=== PATIENT | female | born 1940 | race Caucasian/White ===

== ENCOUNTER 2022-08-30 16:30 | Inpatient (IN) | payer OTHER ==
[~2022-08-30] VITALS: Ht 144.8 cm; Wt 54.0 kg
[2022-08-30 16:37] VITALS: BP_SYST 124; PULSE 69; RESP 18; TEMP 98; O2SAT 98
[2022-08-30 17:12] LABS: BASOPHILS % (AUTO) 0.1 % (0.0-2.0); HEMATOCRIT 29.8 % (36-48); HEMOGLOBIN 9.5 g/dL (12.0-16.0); LYMPHOCYTES # (AUTO) 0.6 K/uL (1.0-5.5); LYMPHOCYTES % (AUTO) 4.2 % (20.5-51.5); MEAN CORPUSCULAR HEMOGLOBIN 28 pg (27-31); MEAN CORPUSCULAR HGB CONC 32 % (32-36); MEAN CORPUSCULAR VOLUME 88 fL (79.0-98.0); MONOCYTES # (AUTO) 0.3 K/uL (0.0-1.0); NEUTROPHILS # (AUTO) 14.4 K/uL (1.8-7.7); NEUTROPHILS % (AUTO) 93.7 % (40.0-70.0); PLATELET COUNT (AUTO) 384 K/uL (130-430); RED BLOOD CELL COUNT(AUTO) 3.41 MIL/uL (4.2-6.2); RED CELL DISTRIBUTION WIDTH 16.2 % (9.0-15.0); WHITE BLOOD COUNT (AUTO) 15.4 K/uL (4.8-10.8)
[2022-08-30 17:17] LABS: ACETONE, SERUM NEGATIVE (NEGATIVE)
[2022-08-30 17:19] LABS: ANION GAP 12 (5-15); CALCIUM 8.4 mg/dL (8.4-11.0); CARBON DIOXIDE 23 mmol/L (23-29); CHLORIDE 99 mmol/L (98-107); CREATININE 2.29 mg/dL (0.55-1.30); GLUCOSE 307 mg/dL (74-106); POTASSIUM 3.7 mmol/L (3.5-5.1); SODIUM SERUM 134 mmol/L (136-145); UREA NITROGEN, BLOOD 52 mg/dL (8-21)
[2022-08-30 17:39] LABS: ALANINE AMINOTRANSFERASE 177 U/L (12-78); ALBUMIN 2.9 g/dL (3.4-4.8); ASPARTATE AMINOTRANSFERASE 64 U/L (10-37); TOTAL BILIRUBIN 0.3 mg/dL (0.0-1.0); TOTAL PROTEIN, SERUM 6.7 g/dL (6.4-8.3)
[2022-08-30] MEDS ORDERED: ASPIRIN 81 MG TAB.CHEW PO ONE (18:15)
[2022-08-30] MEDS ORDERED: LOSA-415 PO (19:27)
[2022-08-30] MEDS ORDERED: TOPXL100 PO (19:27)
[2022-08-30] MEDS ORDERED: HYDR12.55 PO (19:27)
[2022-08-30] MEDS ORDERED: VITA1CAP PO (19:27)
[2022-08-30] MEDS ORDERED: CHOL100038 PO (19:27)
[2022-08-30] MEDS ORDERED: ROSU40TA PO (19:27)
[2022-08-30] MEDS ORDERED: GABA-529 PO (19:27)
[2022-08-30] MEDS ORDERED: HYDR-4039 PO (19:27)
[2022-08-30] MEDS ORDERED: ASA81 PO (19:27)
[2022-08-30] MEDS ORDERED: NOR10 PO (19:27)
[2022-08-30] MEDS ORDERED: LEVO88TA2 PO (19:27)
[2022-08-30] MEDS ORDERED: CLOP75TA32 PO (19:27)
[2022-08-30] MEDS ORDERED: METF-379 PO (19:27)
[2022-08-30] MEDS ORDERED: CEPH250C PO (19:27)
[2022-08-31 13:03] VITALS: BP_SYST 141; PULSE 59; RESP 18; TEMP 96.9
[2022-08-31 13:21] VITALS: O2SAT 97
[2022-08-31] MEDS ORDERED: CLOPIDOGREL BISULFATE 75 MG TABLET PO ONE (13:45)
[2022-08-31] MEDS ORDERED: METOPROLOL SUCCINATE 50 MG TAB.SR.24H (TOPROL XL) PO ONE (13:45)
[2022-08-31] MEDS ORDERED: ASPIRIN 81 MG TAB.CHEW PO ONE (13:45)
[2022-08-31] MEDS ORDERED: amLODIPine BESYLATE 10 MG TABLET PO ONE (13:45)
[2022-08-31] MEDS ORDERED: ATORVASTATIN 20 MG TABLET PO ONE (14:00)
[2022-08-31] MEDS ORDERED: ROSUVASTATIN CALCIUM 5 MG/TAB (CRESTOR) PO SCH (15:00)
[2022-08-31 16:00] VITALS: BP_SYST 146; PULSE 53; RESP 18; TEMP 97.4; O2SAT 97
[2022-08-31] MEDS: hydrALAZINE HCL 25 MG TABLET PO SCH ×2 (16:07→21:20)
[2022-08-31 19:35] VITALS: O2SAT 96
[2022-08-31 20:05] VITALS: BP_SYST 121; PULSE 61; RESP 18; TEMP 97.5; O2SAT 96
[2022-09-01] VITALS (7 sets, daily range): BP systolic 131–139; PULSE 59–71; RESP 16–18; TEMP 96.5–97.8; O2SAT 96–98
[2022-09-01] MEDS: hydrALAZINE HCL 25 MG TABLET PO SCH ×3 (06:44→21:19)
[2022-09-01 07:05] LABS: BILIRUBIN,URINE NEGATIVE (NEGATIVE); BLOOD, URINE NEGATIVE (NEGATIVE); CLARITY/URINE CLEAR (CLEAR); COLOR,URINE YELLOW (YELLOW); GLUCOSE,URINE TRACE (NEGATIVE); KETONES,URINE NEGATIVE (NEGATIVE); LEUKOCYTE ESTERASE ,URINE TRACE (NEGATIVE); NITRITE, URINE NEGATIVE (NEGATIVE); PH,URINE 6.5 (5.0-8.0); PROTEIN URINE NEGATIVE (NEGATIVE); UROBILINOGEN,URINE 0.2 (0.2-1.0)
[2022-09-01 07:16] LABS: BACTERIA,URINE RARE /HPF (None Seen); RBC,URINE 0-3 /HPF (0-3)
[2022-09-01] MEDS ORDERED: HYDROcodone/ACETAMIN 5-325 MG TAB (NORCO/ VICODIN) PO PRN (09:00)
[2022-09-01] MEDS: METOPROLOL SUCCINATE 50 MG TAB.SR.24H (TOPROL XL) PO SCH (09:00)
[2022-09-01] MEDS ORDERED: ACETAMINOPHEN 500 MG TABLET PO PRN (09:00)
[2022-09-01] MEDS: ASPIRIN 81 MG TAB.CHEW PO SCH (09:53)
[2022-09-01] MEDS: HYDROCHLOROTHIAZIDE 12.5 MG CAPSULE (HCTZ) PO SCH (09:54)
[2022-09-01] MEDS ORDERED: ACETAMINOPHEN 500 MG TABLET ONE (09:54)
[2022-09-01] MEDS: amLODIPine BESYLATE 10 MG TABLET PO SCH (09:55)
[2022-09-01] MEDS: ATORVASTATIN 20 MG TABLET PO SCH (09:55)
[2022-09-01] MEDS: CLOPIDOGREL BISULFATE 75 MG TABLET PO SCH (09:59)
[2022-09-01 11:21] LABS: BASOPHILS % (AUTO) 0.1 % (0.0-2.0); EOSINOPHILS # (AUTO) 0.1 K/uL (0.0-0.4); EOSINOPHILS % (AUTO) 0.6 % (0.0-4.0); HEMOGLOBIN 10.9 g/dL (12.0-16.0); LYMPHOCYTES # (AUTO) 2.1 K/uL (1.0-5.5); LYMPHOCYTES % (AUTO) 20.7 % (20.5-51.5); MEAN CORPUSCULAR HEMOGLOBIN 28 pg (27-31); MEAN CORPUSCULAR HGB CONC 32 % (32-36); MEAN CORPUSCULAR VOLUME 87 fL (79.0-98.0); MONOCYTES # (AUTO) 0.7 K/uL (0.0-1.0); MONOCYTES % (AUTO) 6.6 % (1.7-9.3); NEUTROPHILS # (AUTO) 7.4 K/uL (1.8-7.7); PLATELET COUNT (AUTO) 368 K/uL (130-430); RED BLOOD CELL COUNT(AUTO) 3.89 MIL/uL (4.2-6.2); RED CELL DISTRIBUTION WIDTH 16.9 % (9.0-15.0); WHITE BLOOD COUNT (AUTO) 10.2 K/uL (4.8-10.8)
[2022-09-01 11:29] LABS: ANION GAP 11 (5-15); CALCIUM 8.8 mg/dL (8.4-11.0); CARBON DIOXIDE 27 mmol/L (23-29); CHLORIDE 105 mmol/L (98-107); CREATININE 1.21 mg/dL (0.55-1.30); GLUCOSE 116 mg/dL (74-106); SODIUM SERUM 143 mmol/L (136-145); UREA NITROGEN, BLOOD 32 mg/dL (8-21)
[2022-09-01 11:32] LABS: POTASSIUM 2.9 mmol/L (3.5-5.1)
[2022-09-01] MEDS ORDERED: POTASSIUM CHLORIDE 40 MEQ, LIDOCAINE JECT 2% PF 100 MG 50 MG in NS 250 ML IV ONE (12:45)
[2022-09-01] MEDS ORDERED: SILDENAFIL CITRATE 20 MG TABLET PO ONE (16:00)
[2022-09-01] MEDS: SILDENAFIL CITRATE 20 MG TABLET PO SCH (21:00)
[2022-09-02] MEDS: hydrALAZINE HCL 25 MG TABLET PO SCH ×3 (06:18→21:25)
[2022-09-02 08:00] VITALS: O2SAT 96
[2022-09-02 08:50] VITALS: BP_SYST 119; PULSE 73; RESP 16; O2SAT 97
[2022-09-02] MEDS: amLODIPine BESYLATE 10 MG TABLET PO SCH (09:00)
[2022-09-02] MEDS: CLOPIDOGREL BISULFATE 75 MG TABLET PO SCH (09:04)
[2022-09-02] MEDS: SILDENAFIL CITRATE 20 MG TABLET PO SCH ×3 (09:04→21:00)
[2022-09-02] MEDS: ATORVASTATIN 20 MG TABLET PO SCH (09:04)
[2022-09-02] MEDS: HYDROCHLOROTHIAZIDE 12.5 MG CAPSULE (HCTZ) PO SCH (09:05)
[2022-09-02] MEDS: METOPROLOL SUCCINATE 50 MG TAB.SR.24H (TOPROL XL) PO SCH (09:06)
[2022-09-02] MEDS: ASPIRIN 81 MG TAB.CHEW PO SCH (09:06)
[2022-09-02 11:42] VITALS: BP_SYST 133; PULSE 55; RESP 18; TEMP 98.1; O2SAT 98
[2022-09-02 16:33] VITALS: BP_SYST 142; PULSE 57; RESP 18; TEMP 97.9; O2SAT 97
[2022-09-02] MEDS ORDERED: DEXTROSE 50% JECT 50 ML DISP.SYRIN IVP PRN (18:30)
[2022-09-02] MEDS ORDERED: GLUCOSE (DEXTROSE) ORAL GEL -Adults PO PRN (18:30)
[2022-09-02] MEDS ORDERED: D5W 1,000 ML IV PRN (18:30)
[2022-09-02 20:00] VITALS: BP_SYST 139; PULSE 60; RESP 18; TEMP 97.9; O2SAT 98
[2022-09-02 22:00] VITALS: O2SAT 98
[2022-09-03 00:25] VITALS: BP_SYST 139; PULSE 70; RESP 16; TEMP 97.7; O2SAT 97
[2022-09-03] MEDS: hydrALAZINE HCL 25 MG TABLET PO SCH (06:32)
[2022-09-03 08:00] VITALS: O2SAT 99
[2022-09-03] MEDS: CLOPIDOGREL BISULFATE 75 MG TABLET PO SCH (09:26)
[2022-09-03] MEDS: SILDENAFIL CITRATE 20 MG TABLET PO SCH (09:26)
[2022-09-03] MEDS: ASPIRIN 81 MG TAB.CHEW PO SCH (09:26)
[2022-09-03] MEDS: ATORVASTATIN 20 MG TABLET PO SCH (09:26)
[2022-09-03] MEDS: METOPROLOL SUCCINATE 50 MG TAB.SR.24H (TOPROL XL) PO SCH (09:27)
[2022-09-03] MEDS: amLODIPine BESYLATE 10 MG TABLET PO SCH (09:28)
[2022-09-03] MEDS: HYDROCHLOROTHIAZIDE 12.5 MG CAPSULE (HCTZ) PO SCH (09:28)
[2022-09-03 11:57] LABS: ANION GAP 7 (5-15); CALCIUM 8.4 mg/dL (8.4-11.0); CARBON DIOXIDE 28 mmol/L (23-29); CHLORIDE 102 mmol/L (98-107); CREATININE 1.37 mg/dL (0.55-1.30); GLUCOSE 297 mg/dL (74-106); POTASSIUM 3.7 mmol/L (3.5-5.1); SODIUM SERUM 137 mmol/L (136-145); UREA NITROGEN, BLOOD 27 mg/dL (8-21)
[2022-09-03 11:58] VITALS: BP_SYST 139; PULSE 57; RESP 17; TEMP 98.4; O2SAT 97
[2022-09-03 12:53] VITALS: BP_SYST 132; PULSE 68; RESP 16; TEMP 98.3; O2SAT 99
== END 2022-09-03 13:51 | disposition home or self-care (01) | DRG 637 ==
LOC: SED 16:30 → STU 18:51
PROVIDERS: ADMIT Internal Medicine; ATTEND Internal Medicine
DX: E11.00 Type 2 diabetes mellitus with hyperosmolarity without nonketotic hyperglycemic-hyperosmolar coma (NKHHC) (principal); N17.0 Acute kidney failure with tubular necrosis; G51.0 Bell's palsy; I27.21 Secondary pulmonary arterial hypertension; E11.9 Type 2 diabetes mellitus without complications; E87.6 Hypokalemia; E78.5 Hyperlipidemia, unspecified; I11.9 Hypertensive heart disease without heart failure; Z88.2 Allergy status to sulfonamides; Z79.82 Long term (current) use of aspirin; I36.1 Nonrheumatic tricuspid (valve) insufficiency
CPT/HCPCS: 36415; 70450-TC; 71045; 76376; 80048; 80053; 81000; 82009; 82962; 83605; 83735; 83880; 84302; 84484; 85025; 92610-GN; 93005; 93306; 93880; 99285; G0378; J3480; J7050

== ENCOUNTER 2022-12-10 20:22 | Emergency (ER) | payer OTHER ==
[~2022-12-10] VITALS: Ht 157.5 cm; Wt 50.8 kg
[~2022-12-10 20:22] MED LIST: ASA81 PO; CEPH250C PO; CHOL100038 PO; CLOP75TA32 PO; GABA-529 PO; HYDR-4039 PO; HYDR12.55 PO; LEVO88TA2 PO; LOSA-415 PO; METF-379 PO; NOR10 PO; ROSU40TA PO; TOPXL100 PO; VITA1CAP PO
[2022-12-10 20:29] VITALS: BP_SYST 110; PULSE 80; RESP 20; TEMP 97.1; O2SAT 98
[2022-12-10] MEDS ORDERED: DEXTROSE 50% JECT 50 ML DISP.SYRIN ONE (20:29)
[2022-12-10] MEDS ORDERED: DEXTROSE 50% JECT 50 ML DISP.SYRIN IVP ONE (20:45)
[2022-12-10 21:11] LABS: BASOPHILS % (AUTO) 0.3 % (0.0-2.0); EOSINOPHILS # (AUTO) 0.1 K/uL (0.0-0.4); EOSINOPHILS % (AUTO) 0.6 % (0.0-4.0); HEMATOCRIT 31.2 % (36-48); HEMOGLOBIN 10.1 g/dL (12.0-16.0); LYMPHOCYTES # (AUTO) 0.9 K/uL (1.0-5.5); LYMPHOCYTES % (AUTO) 7.9 % (20.5-51.5); MEAN CORPUSCULAR HEMOGLOBIN 28 pg (27-31); MEAN CORPUSCULAR HGB CONC 32 % (32-36); MEAN CORPUSCULAR VOLUME 87 fL (79.0-98.0); MONOCYTES # (AUTO) 0.6 K/uL (0.0-1.0); MONOCYTES % (AUTO) 5.7 % (1.7-9.3); NEUTROPHILS # (AUTO) 9.3 K/uL (1.8-7.7); NEUTROPHILS % (AUTO) 85.5 % (40.0-70.0); PLATELET COUNT (AUTO) 261 K/uL (130-430); RED BLOOD CELL COUNT(AUTO) 3.59 MIL/uL (4.2-6.2); RED CELL DISTRIBUTION WIDTH 15.4 % (9.0-15.0); WHITE BLOOD COUNT (AUTO) 10.9 K/uL (4.8-10.8)
[2022-12-10 21:58] LABS: ANION GAP 16 (5-15); CALCIUM 8.7 mg/dL (8.4-11.0); CARBON DIOXIDE 18 mmol/L (23-29); CHLORIDE 100 mmol/L (98-107); CREATININE 4.83 mg/dL (0.55-1.30); GLUCOSE 211 mg/dL (74-106); POTASSIUM 3.9 mmol/L (3.5-5.1); SODIUM SERUM 134 mmol/L (136-145); UREA NITROGEN, BLOOD 74 mg/dL (8-21)
[2022-12-10 22:03] LABS: ALANINE AMINOTRANSFERASE 437 U/L (12-78); ALBUMIN 2.4 g/dL (3.4-4.8); ASPARTATE AMINOTRANSFERASE 700 U/L (10-37); TOTAL BILIRUBIN 0.2 mg/dL (0.0-1.0); TOTAL PROTEIN, SERUM 6.5 g/dL (6.4-8.3)
[2022-12-10 22:27] VITALS: BP_SYST 122; PULSE 68; RESP 18; TEMP 97.1; O2SAT 98
== END 2022-12-10 22:27 | disposition home or self-care (01) ==
LOC: SED 20:22
DX: E11.649 Type 2 diabetes mellitus with hypoglycemia without coma (principal); I10 Essential (primary) hypertension; Z88.2 Allergy status to sulfonamides; Z79.899 Other long term (current) drug therapy
CPT/HCPCS: 36415; 80053; 82962; 85025; 96374; 99283

== ENCOUNTER 2022-12-16 12:06 | Inpatient (IN) | payer OTHER ==
[~2022-12-16] VITALS: Ht 149.9 cm; Wt 53.1 kg
[2022-12-16 12:41] VITALS: BP_SYST 131; PULSE 52; RESP 16; TEMP 97.6; O2SAT 100
[2022-12-16] MEDS ORDERED: NACL 0.9% 1,000 ML IV ONE ×2 (13:00→14:30)
[2022-12-16 13:38] LABS: BASOPHILS % (AUTO) 0.4 % (0.0-2.0); EOSINOPHILS # (AUTO) 0.1 K/uL (0.0-0.4); EOSINOPHILS % (AUTO) 1.5 % (0.0-4.0); HEMATOCRIT 32.3 % (36-48); HEMOGLOBIN 10.3 g/dL (12.0-16.0); LYMPHOCYTES # (AUTO) 0.9 K/uL (1.0-5.5); MEAN CORPUSCULAR HEMOGLOBIN 28 pg (27-31); MEAN CORPUSCULAR HGB CONC 32 % (32-36); MEAN CORPUSCULAR VOLUME 87 fL (79.0-98.0); MONOCYTES # (AUTO) 0.4 K/uL (0.0-1.0); MONOCYTES % (AUTO) 4.8 % (1.7-9.3); NEUTROPHILS # (AUTO) 7.7 K/uL (1.8-7.7); NEUTROPHILS % (AUTO) 83.3 % (40.0-70.0); PLATELET COUNT (AUTO) 330 K/uL (130-430); RED BLOOD CELL COUNT(AUTO) 3.72 MIL/uL (4.2-6.2); RED CELL DISTRIBUTION WIDTH 15.5 % (9.0-15.0); WHITE BLOOD COUNT (AUTO) 9.3 K/uL (4.8-10.8)
[2022-12-16 13:54] LABS: ALANINE AMINOTRANSFERASE 387 U/L (12-78); ALBUMIN 2.6 g/dL (3.4-4.8); ANION GAP 19 (5-15); ASPARTATE AMINOTRANSFERASE 221 U/L (10-37); CALCIUM 9.3 mg/dL (8.4-11.0); CARBON DIOXIDE 19 mmol/L (23-29); CHLORIDE 101 mmol/L (98-107); GLUCOSE 225 mg/dL (74-106); SODIUM SERUM 139 mmol/L (136-145); TOTAL BILIRUBIN 0.3 mg/dL (0.0-1.0); TOTAL PROTEIN, SERUM 7.2 g/dL (6.4-8.3)
[2022-12-16 14:06] LABS: POTASSIUM 6.4 mmol/L (3.5-5.1)
[2022-12-16 14:07] LABS: UREA NITROGEN, BLOOD 154 mg/dL (8-21)
[2022-12-16] MEDS ORDERED: SODIUM BICARBONATE 8.4% JECT 50 MEQ/50 ML SYRINGE IVP ONE (14:30)
[2022-12-16] MEDS ORDERED: INSULIN REGULAR, HUMAN 10 UNITS/0.1 ML, 3 ML VIAL IVP ONE (14:30)
[2022-12-16] MEDS ORDERED: SODIUM POLYSTYRENE SULFONATE 15 GM/60 ML UDBTL PO ONE ×2 (14:30→16:30)
[2022-12-16] MEDS ORDERED: DEXTROSE 50% JECT 50 ML DISP.SYRIN IVP ONE (14:30)
[2022-12-16] MEDS ORDERED: INSU100V (15:12)
[2022-12-16] MEDS ORDERED: ASPI-1077 PO (15:12)
[2022-12-16 16:07] LABS: INR 1.1 (0.8-1.2)
[2022-12-16] MEDS ORDERED: INSULIN Lispro 100 UNITS/ML, 3 ML VIAL (humaLOG) SQ SCH (16:15)
[2022-12-16 17:35] VITALS: BP_SYST 125; PULSE 66; RESP 18; TEMP 97
[2022-12-16 17:51] VITALS: BP_SYST 125; PULSE 66; RESP 16; TEMP 96.6; O2SAT 96
[2022-12-16] MEDS: ATORVASTATIN 20 MG TABLET PO SCH (18:00)
[2022-12-16 20:05] VITALS: BP_SYST 119; PULSE 64; RESP 18; TEMP 97.8; O2SAT 98
[2022-12-16] MEDS ORDERED: HEPARIN SODIUM, PORCINE 10,000 UNITS/ 10 ML VIAL ONE (20:55)
[2022-12-16] MEDS: hydrALAZINE HCL 25 MG TABLET PO SCH (21:00)
[2022-12-16] MEDS ORDERED: HEPARIN SODIUM,PORCINE 10,000 UNIT/ML VIAL IV ONE (21:00)
[2022-12-16] MEDS ORDERED: HEPARIN SODIUM, PORCINE 10,000 UNITS/ 10 ML VIAL IV ONE (21:15)
[2022-12-16] MEDS: INSULIN LISPRO SLIDING SCALE 100 UNITS/ML, 3 ML VIAL (humaLOG) SUBCUT PRN (21:45)
[2022-12-16] MEDS ORDERED: HEPARIN SODIUM,PORCINE 5,000 UNITS/ML VIAL ONE (22:27)
[2022-12-17 00:37] VITALS: BP_SYST 116; PULSE 71; RESP 16; TEMP 96.4; O2SAT 98
[2022-12-17 04:57] LABS: BASOPHILS % (AUTO) 0.2 % (0.0-2.0); EOSINOPHILS # (AUTO) 0.2 K/uL (0.0-0.4); EOSINOPHILS % (AUTO) 1.9 % (0.0-4.0); HEMATOCRIT 27.4 % (36-48); HEMOGLOBIN 8.9 g/dL (12.0-16.0); LYMPHOCYTES # (AUTO) 1.3 K/uL (1.0-5.5); MEAN CORPUSCULAR HEMOGLOBIN 28 pg (27-31); MEAN CORPUSCULAR HGB CONC 33 % (32-36); MEAN CORPUSCULAR VOLUME 85 fL (79.0-98.0); MONOCYTES # (AUTO) 0.5 K/uL (0.0-1.0); MONOCYTES % (AUTO) 5.2 % (1.7-9.3); NEUTROPHILS # (AUTO) 7.1 K/uL (1.8-7.7); NEUTROPHILS % (AUTO) 78.7 % (40.0-70.0); PLATELET COUNT (AUTO) 245 K/uL (130-430); RED BLOOD CELL COUNT(AUTO) 3.22 MIL/uL (4.2-6.2); RED CELL DISTRIBUTION WIDTH 15.6 % (9.0-15.0)
[2022-12-17 05:08] LABS: ANION GAP 12 (5-15); CALCIUM 8.3 mg/dL (8.4-11.0); CARBON DIOXIDE 27 mmol/L (23-29); CHLORIDE 105 mmol/L (98-107); CREATININE 5.48 mg/dL (0.55-1.30); GLUCOSE 86 mg/dL (74-106); POTASSIUM 3.2 mmol/L (3.5-5.1); SODIUM SERUM 144 mmol/L (136-145); UREA NITROGEN, BLOOD 66 mg/dL (8-21)
[2022-12-17 05:17] LABS: BILIRUBIN,URINE NEGATIVE (NEGATIVE); COLOR,URINE YELLOW (YELLOW); GLUCOSE,URINE TRACE (NEGATIVE); KETONES,URINE NEGATIVE (NEGATIVE); LEUKOCYTE ESTERASE ,URINE 2+ (NEGATIVE); NITRITE, URINE NEGATIVE (NEGATIVE); PROTEIN URINE 2+ (NEGATIVE); UROBILINOGEN,URINE 0.2 (0.2-1.0)
[2022-12-17 05:22] LABS: BLOOD, URINE 1+ (NEGATIVE); CLARITY/URINE SLIGHTLY CLOUDY (CLEAR)
[2022-12-17 05:24] LABS: BACTERIA,URINE MODERATE /HPF (None Seen); WBC,URINE 20-50 /HPF (0-3)
[2022-12-17] MEDS: LEVOTHYROXINE SODIUM 0.088 MG TABLET PO SCH (06:54)
[2022-12-17 08:05] VITALS: BP_SYST 114; PULSE 76; RESP 16; TEMP 98.1; O2SAT 97
[2022-12-17] MEDS ORDERED: ASPIRIN 81 MG TAB.CHEW PO SCH (09:00)
[2022-12-17] MEDS: METOPROLOL SUCCINATE 50 MG TAB.SR.24H (TOPROL XL) PO SCH (09:40)
[2022-12-17] MEDS: hydrALAZINE HCL 25 MG TABLET PO SCH ×3 (09:40→21:13)
[2022-12-17] MEDS: ASPIRIN 81 MG TAB.CHEW PO SCH (09:41)
[2022-12-17] MEDS: amLODIPine BESYLATE 10 MG TABLET PO SCH (09:41)
[2022-12-17] MEDS: VITAMIN B COMPLEX 1 CAP/TAB PO SCH (09:46)
[2022-12-17 11:25] VITALS: BP_SYST 118; PULSE 78; RESP 16; TEMP 98.8; O2SAT 95
[2022-12-17] MEDS: INSULIN LISPRO SLIDING SCALE 100 UNITS/ML, 3 ML VIAL (humaLOG) SUBCUT PRN ×3 (12:18→21:21)
[2022-12-17 15:22] VITALS: BP_SYST 99; PULSE 63; RESP 16; TEMP 96.7; O2SAT 97
[2022-12-17] MEDS: ATORVASTATIN 20 MG TABLET PO SCH (19:16)
[2022-12-17 20:00] VITALS: BP_SYST 110; PULSE 65; RESP 20; TEMP 98.1; O2SAT 98
[2022-12-18] VITALS (7 sets, daily range): BP systolic 93–132; PULSE 58–117; RESP 15–18; TEMP 96.7–97.9; O2SAT 95–100
[2022-12-18 05:40] LABS: BASOPHILS % (AUTO) 0.2 % (0.0-2.0); EOSINOPHILS # (AUTO) 0.2 K/uL (0.0-0.4); EOSINOPHILS % (AUTO) 2.5 % (0.0-4.0); HEMATOCRIT 27.4 % (36-48); HEMOGLOBIN 8.9 g/dL (12.0-16.0); LYMPHOCYTES # (AUTO) 1.8 K/uL (1.0-5.5); LYMPHOCYTES % (AUTO) 18.9 % (20.5-51.5); MEAN CORPUSCULAR HEMOGLOBIN 28 pg (27-31); MEAN CORPUSCULAR HGB CONC 33 % (32-36); MEAN CORPUSCULAR VOLUME 85 fL (79.0-98.0); MONOCYTES # (AUTO) 0.5 K/uL (0.0-1.0); MONOCYTES % (AUTO) 5.8 % (1.7-9.3); NEUTROPHILS # (AUTO) 6.7 K/uL (1.8-7.7); NEUTROPHILS % (AUTO) 72.6 % (40.0-70.0); PLATELET COUNT (AUTO) 233 K/uL (130-430); RED BLOOD CELL COUNT(AUTO) 3.22 MIL/uL (4.2-6.2); RED CELL DISTRIBUTION WIDTH 15.8 % (9.0-15.0); WHITE BLOOD COUNT (AUTO) 9.3 K/uL (4.8-10.8)
[2022-12-18 05:55] LABS: ANION GAP 12 (5-15); CALCIUM 8.4 mg/dL (8.4-11.0); CARBON DIOXIDE 27 mmol/L (23-29); CHLORIDE 104 mmol/L (98-107); CREATININE 6.55 mg/dL (0.55-1.30); GLUCOSE 98 mg/dL (74-106); POTASSIUM 3.1 mmol/L (3.5-5.1); SODIUM SERUM 143 mmol/L (136-145); UREA NITROGEN, BLOOD 76 mg/dL (8-21)
[2022-12-18] MEDS: LEVOTHYROXINE SODIUM 0.088 MG TABLET PO SCH (05:58)
[2022-12-18] MEDS: amLODIPine BESYLATE 10 MG TABLET PO SCH (09:43)
[2022-12-18] MEDS: ASPIRIN 81 MG TAB.CHEW PO SCH (09:43)
[2022-12-18] MEDS: VITAMIN B COMPLEX 1 CAP/TAB PO SCH (09:43)
[2022-12-18] MEDS: hydrALAZINE HCL 25 MG TABLET PO SCH ×3 (09:44→20:25)
[2022-12-18] MEDS: METOPROLOL SUCCINATE 50 MG TAB.SR.24H (TOPROL XL) PO SCH (09:44)
[2022-12-18 11:06] LABS: HEPATITIS A AB, IgM Negative (Negative); HEPATITIS B CORE AB, IgM Negative (Negative); HEPATITIS B SURFACE AG Negative (Negative); HEPATITIS C VIRUS AB Non Reactive (Non Reactive)
[2022-12-18] MEDS: INSULIN LISPRO SLIDING SCALE 100 UNITS/ML, 3 ML VIAL (humaLOG) SUBCUT PRN ×2 (11:25→20:34)
[2022-12-18] MEDS ORDERED: HEPARIN SODIUM,PORCINE 5,000 UNITS/ML VIAL MC ONE (15:15)
[2022-12-18] MEDS: ATORVASTATIN 20 MG TABLET PO SCH (20:32)
[2022-12-19 00:33] VITALS: BP_SYST 113; PULSE 64; RESP 16; TEMP 97.3; O2SAT 97
[2022-12-19 05:18] LABS: BASOPHILS % (AUTO) 0.3 % (0.0-2.0); EOSINOPHILS # (AUTO) 0.2 K/uL (0.0-0.4); EOSINOPHILS % (AUTO) 2.9 % (0.0-4.0); HEMATOCRIT 27.5 % (36-48); HEMOGLOBIN 8.8 g/dL (12.0-16.0); LYMPHOCYTES # (AUTO) 1.4 K/uL (1.0-5.5); LYMPHOCYTES % (AUTO) 18.4 % (20.5-51.5); MEAN CORPUSCULAR HEMOGLOBIN 28 pg (27-31); MEAN CORPUSCULAR HGB CONC 32 % (32-36); MEAN CORPUSCULAR VOLUME 87 fL (79.0-98.0); MONOCYTES # (AUTO) 0.5 K/uL (0.0-1.0); MONOCYTES % (AUTO) 6.9 % (1.7-9.3); NEUTROPHILS # (AUTO) 5.3 K/uL (1.8-7.7); NEUTROPHILS % (AUTO) 71.5 % (40.0-70.0); PLATELET COUNT (AUTO) 185 K/uL (130-430); RED BLOOD CELL COUNT(AUTO) 3.17 MIL/uL (4.2-6.2); RED CELL DISTRIBUTION WIDTH 15.9 % (9.0-15.0); WHITE BLOOD COUNT (AUTO) 7.4 K/uL (4.8-10.8)
[2022-12-19 05:26] LABS: ANION GAP 7 (5-15); CALCIUM 8.4 mg/dL (8.4-11.0); CARBON DIOXIDE 28 mmol/L (23-29); CHLORIDE 104 mmol/L (98-107); GLUCOSE 138 mg/dL (74-106); SODIUM SERUM 139 mmol/L (136-145); UREA NITROGEN, BLOOD 34 mg/dL (8-21)
[2022-12-19] MEDS: LEVOTHYROXINE SODIUM 0.088 MG TABLET PO SCH (06:56)
[2022-12-19 07:00] VITALS: BP_SYST 121; PULSE 62; RESP 16; TEMP 98.4; O2SAT 95; O2SAT 98
[2022-12-19 09:00] VITALS: BP_SYST 121; PULSE 62; RESP 16; TEMP 98.4; O2SAT 95
[2022-12-19] MEDS ORDERED: GABAPENTIN 100 MG CAPSULE PO ONE (09:45)
[2022-12-19] MEDS: ASPIRIN 81 MG TAB.CHEW PO SCH (10:58)
[2022-12-19] MEDS: hydrALAZINE HCL 25 MG TABLET PO SCH ×3 (10:58→22:22)
[2022-12-19] MEDS: METOPROLOL SUCCINATE 50 MG TAB.SR.24H (TOPROL XL) PO SCH (10:59)
[2022-12-19] MEDS: amLODIPine BESYLATE 10 MG TABLET PO SCH (10:59)
[2022-12-19] MEDS: VITAMIN B COMPLEX 1 CAP/TAB PO SCH (11:00)
[2022-12-19 11:49] VITALS: BP_SYST 115; PULSE 61; RESP 18; TEMP 98.6; O2SAT 97
[2022-12-19] MEDS: INSULIN LISPRO SLIDING SCALE 100 UNITS/ML, 3 ML VIAL (humaLOG) SUBCUT PRN ×3 (12:03→22:19)
[2022-12-19 16:00] VITALS: BP_SYST 113; PULSE 66; RESP 18; TEMP 98; O2SAT 99
[2022-12-19] MEDS: ATORVASTATIN 20 MG TABLET PO SCH (18:16)
[2022-12-19] MEDS ORDERED: CEPH250C PO ×2 (18:27)
[2022-12-19] MEDS ORDERED: LEVO250T73 PO (18:35)
[2022-12-20 01:05] VITALS: BP_SYST 110; PULSE 62; RESP 16; TEMP 97.3; O2SAT 95
[2022-12-20] MEDS: LEVOTHYROXINE SODIUM 0.088 MG TABLET PO SCH (06:10)
[2022-12-20] MEDS: INSULIN LISPRO SLIDING SCALE 100 UNITS/ML, 3 ML VIAL (humaLOG) SUBCUT PRN (06:11)
[2022-12-20] MEDS: METOPROLOL SUCCINATE 50 MG TAB.SR.24H (TOPROL XL) PO SCH (09:00)
[2022-12-20] MEDS ORDERED: GABAPENTIN 100 MG CAPSULE PO SCH (09:00)
[2022-12-20] MEDS: ASPIRIN 81 MG TAB.CHEW PO SCH (09:02)
[2022-12-20] MEDS: hydrALAZINE HCL 25 MG TABLET PO SCH (09:03)
[2022-12-20] MEDS: amLODIPine BESYLATE 10 MG TABLET PO SCH (09:03)
[2022-12-20] MEDS: VITAMIN B COMPLEX 1 CAP/TAB PO SCH (09:03)
[2022-12-20] MEDS ORDERED: HEPARIN SODIUM,PORCINE 5,000 UNITS/ML VIAL IV ONE (11:00)
[2022-12-20] MEDS ORDERED: HEPARIN SODIUM,PORCINE 5,000 UNITS/ML VIAL MC ONE (11:30)
[2022-12-20 12:54] VITALS: BP_SYST 99; PULSE 56; RESP 17; TEMP 97.1; O2SAT 99
[2022-12-25 14:06] LABS: ATYPICAL pANCA <1:20 titer (Neg:<1:20); CYTOPLASMIC (C-ANCA) <1:20 titer (Neg:<1:20); CYTOPLASMIC (P-ANCA) <1:20 titer (Neg:<1:20)
== END 2022-12-20 14:25 | disposition home health service (06) | DRG 682 ==
LOC: SED 12:06 → STU 15:14 → SMU 12-17 16:52
PROVIDERS: ADMIT Specialist; ATTEND Specialist
PROC: 02HV33Z Insertion of Infusion Device into Superior Vena Cava, Percutaneous Approach (ICD-10-PCS; principal; 2022-12-16)
PROC: B548ZZA Ultrasonography of Superior Vena Cava, Guidance (ICD-10-PCS; 2022-12-16)
PROC: 5A1D70Z Performance of Urinary Filtration, Intermittent, Less than 6 Hours Per Day (ICD-10-PCS; 2022-12-16)
PROC: 5A1D70Z Performance of Urinary Filtration, Intermittent, Less than 6 Hours Per Day (ICD-10-PCS; 2022-12-18)
PROC: 5A1D70Z Performance of Urinary Filtration, Intermittent, Less than 6 Hours Per Day (ICD-10-PCS; 2022-12-20)
DX: I12.0 Hypertensive chronic kidney disease with stage 5 chronic kidney disease or end stage renal disease (principal); N18.6 End stage renal disease; N17.9 Acute kidney failure, unspecified; M31.9 Necrotizing vasculopathy, unspecified; E87.5 Hyperkalemia; E11.22 Type 2 diabetes mellitus with diabetic chronic kidney disease; Z20.822 Contact with and (suspected) exposure to COVID-19; E03.9 Hypothyroidism, unspecified; E78.00 Pure hypercholesterolemia, unspecified; Z88.2 Allergy status to sulfonamides; Z79.899 Other long term (current) drug therapy; Z79.82 Long term (current) use of aspirin; Z79.4 Long term (current) use of insulin
CPT/HCPCS: 36415; 71045; 71250-TC; 76376; 76770; 80048; 80053; 80074; 81000; 81001; 81015; 82570; 82962; 83735; 83970; 84302; 84484; 85025; 85610-TC; 86256; 86480; 87081; 87086; 90935; 90937; 93005; 96361; 96374; 96375; 97110-GP; 97116-GP; 97530-GP; 99285; G0378; J1644; J1815

== ENCOUNTER 2023-01-05 03:51 | Inpatient (IN) | payer OTHER ==
[~2023-01-05] VITALS: Ht 149.9 cm; Wt 49.4 kg
[~2023-01-05 03:51] MED LIST changes: -ASA81 PO; +ASPI-1077 PO; -CEPH250C PO; -CLOP75TA32 PO; -HYDR-4039 PO; +INSU100V; +LEVO250T73 PO; -METF-379 PO; -NOR10 PO
[2023-01-05 04:00] VITALS: BP_SYST 184; PULSE 75; RESP 20; TEMP 97.7; O2SAT 99
[2023-01-05 04:31] LABS: BASOPHILS % (AUTO) 0.3 % (0.0-2.0); EOSINOPHILS % (AUTO) 0.3 % (0.0-4.0); HEMATOCRIT 32.9 % (36-48); HEMOGLOBIN 10.3 g/dL (12.0-16.0); LYMPHOCYTES # (AUTO) 0.9 K/uL (1.0-5.5); LYMPHOCYTES % (AUTO) 15.8 % (20.5-51.5); MEAN CORPUSCULAR HEMOGLOBIN 28 pg (27-31); MEAN CORPUSCULAR HGB CONC 31 % (32-36); MEAN CORPUSCULAR VOLUME 90 fL (79.0-98.0); MONOCYTES # (AUTO) 0.6 K/uL (0.0-1.0); MONOCYTES % (AUTO) 9.7 % (1.7-9.3); NEUTROPHILS # (AUTO) 4.4 K/uL (1.8-7.7); NEUTROPHILS % (AUTO) 73.9 % (40.0-70.0); PLATELET COUNT (AUTO) 199 K/uL (130-430); RED BLOOD CELL COUNT(AUTO) 3.65 MIL/uL (4.2-6.2); RED CELL DISTRIBUTION WIDTH 18.7 % (9.0-15.0)
[2023-01-05 04:34] LABS: BILIRUBIN,URINE NEGATIVE (NEGATIVE); BLOOD, URINE 2+ (NEGATIVE); CLARITY/URINE CLEAR (CLEAR); COLOR,URINE YELLOW (YELLOW); GLUCOSE,URINE TRACE (NEGATIVE); KETONES,URINE NEGATIVE (NEGATIVE); LEUKOCYTE ESTERASE ,URINE TRACE (NEGATIVE); NITRITE, URINE NEGATIVE (NEGATIVE); PROTEIN URINE 3+ (NEGATIVE); UROBILINOGEN,URINE 0.2 (0.2-1.0)
[2023-01-05 04:52] LABS: PROTHROMBIN TIME 10.5 SECS (9.5-12.5)
[2023-01-05 05:13] LABS: ALANINE AMINOTRANSFERASE 38 U/L (12-78); ALBUMIN 2.8 g/dL (3.4-4.8); ANION GAP 10 (5-15); ASPARTATE AMINOTRANSFERASE 55 U/L (10-37); BILIRUBIN,DIRECT 0.1 mg/dL (0.0-0.3); CALCIUM 9.1 mg/dL (8.4-11.0); CARBON DIOXIDE 29 mmol/L (23-29); CHLORIDE 100 mmol/L (98-107); CREATININE 2.71 mg/dL (0.55-1.30); GLUCOSE 153 mg/dL (74-106); SODIUM SERUM 139 mmol/L (136-145); TOTAL BILIRUBIN 0.5 mg/dL (0.0-1.0); TOTAL PROTEIN, SERUM 6.9 g/dL (6.4-8.3); UREA NITROGEN, BLOOD 21 mg/dL (8-21)
[2023-01-05 05:19] LABS: POTASSIUM 2.2 mmol/L (3.5-5.1)
[2023-01-05] MEDS ORDERED: MAGNESIUM SULFATE 50 ML IV ONE (05:30)
[2023-01-05] MEDS ORDERED: KCL 40 mEq in D5W 1000 mL 1,000 ML IV ONE (05:30)
[2023-01-05 05:38] LABS: BACTERIA,URINE None Seen /HPF (None Seen)
[2023-01-05] MEDS ORDERED: KCL 20 mEq in 100 mL (PREMIX) 200 ML IV ONE (06:05)
[2023-01-05] MEDS ORDERED: KCL 20 mEq in 100 mL (PREMIX) 100 ML IV ONE ×2 (06:15→18:00)
[2023-01-05] MEDS ORDERED: NACL 0.9% 1,000 ML IV SCH (10:15)
[2023-01-05] MEDS ORDERED: ACETAMINOPHEN 325 MG TABLET PO PRN ×2 (10:15→12:00)
[2023-01-05] MEDS ORDERED: ROSUVASTATIN CALCIUM 5 MG/TAB (CRESTOR) PO SCH (10:15)
[2023-01-05] MEDS ORDERED: GABAPENTIN 100 MG CAPSULE PO SCH (10:15)
[2023-01-05] MEDS ORDERED: ONDANSETRON HCL 4 MG/2 ML VIAL IVP PRN (10:15)
[2023-01-05] MEDS ORDERED: HYDROcodone/ACETAMIN 5-325 MG TAB (NORCO/ VICODIN) PO PRN ×2 (10:15→12:00)
[2023-01-05] MEDS ORDERED: METOPROLOL SUCCINATE 50 MG TAB.SR.24H (TOPROL XL) PO ONE (12:00)
[2023-01-05] MEDS ORDERED: ASPIRIN 81 MG TAB.CHEW PO ONE (12:00)
[2023-01-05] MEDS ORDERED: VITAMIN B COMPLEX 1 CAP/TAB PO ONE (12:00)
[2023-01-05] MEDS ORDERED: ATORVASTATIN 20 MG TABLET PO ONE (12:00)
[2023-01-05] MEDS ORDERED: LEVOTHYROXINE SODIUM 0.088 MG TABLET PO ONE (13:00)
[2023-01-05] MEDS ORDERED: GABAPENTIN 100 MG CAPSULE PO ONE (13:00)
[2023-01-05] MEDS ORDERED: GLUCOSE (DEXTROSE) ORAL GEL -Adults PO PRN (13:45)
[2023-01-05] MEDS ORDERED: DEXTROSE 50% JECT 50 ML DISP.SYRIN IVP PRN (13:45)
[2023-01-05 15:42] VITALS: BP_SYST 157; PULSE 69; RESP 18; TEMP 97.1; O2SAT 100
[2023-01-05 16:58] LABS: BASOPHILS % (AUTO) 0.3 % (0.0-2.0); EOSINOPHILS % (AUTO) 0.5 % (0.0-4.0); HEMATOCRIT 29.4 % (36-48); HEMOGLOBIN 9.4 g/dL (12.0-16.0); LYMPHOCYTES # (AUTO) 1.6 K/uL (1.0-5.5); LYMPHOCYTES % (AUTO) 25.3 % (20.5-51.5); MEAN CORPUSCULAR HEMOGLOBIN 29 pg (27-31); MEAN CORPUSCULAR HGB CONC 32 % (32-36); MEAN CORPUSCULAR VOLUME 90 fL (79.0-98.0); MONOCYTES # (AUTO) 0.7 K/uL (0.0-1.0); MONOCYTES % (AUTO) 10.9 % (1.7-9.3); NEUTROPHILS # (AUTO) 3.9 K/uL (1.8-7.7); PLATELET COUNT (AUTO) 201 K/uL (130-430); RED BLOOD CELL COUNT(AUTO) 3.26 MIL/uL (4.2-6.2); RED CELL DISTRIBUTION WIDTH 19.3 % (9.0-15.0); WHITE BLOOD COUNT (AUTO) 6.2 K/uL (4.8-10.8)
[2023-01-05 17:10] VITALS: BP_SYST 123; PULSE 60; RESP 16; TEMP 97.9; O2SAT 97
[2023-01-05 17:10] LABS: ALANINE AMINOTRANSFERASE 38 U/L (12-78); ALBUMIN 2.6 g/dL (3.4-4.8); ANION GAP 8 (5-15); ASPARTATE AMINOTRANSFERASE 54 U/L (10-37); CALCIUM 8.7 mg/dL (8.4-11.0); CARBON DIOXIDE 29 mmol/L (23-29); CHLORIDE 102 mmol/L (98-107); CREATININE 2.55 mg/dL (0.55-1.30); GLUCOSE 152 mg/dL (74-106); SODIUM SERUM 139 mmol/L (136-145); TOTAL BILIRUBIN 0.4 mg/dL (0.0-1.0); TOTAL PROTEIN, SERUM 6.4 g/dL (6.4-8.3); UREA NITROGEN, BLOOD 20 mg/dL (8-21)
[2023-01-05 17:12] LABS: POTASSIUM 2.8 mmol/L (3.5-5.1)
[2023-01-05] MEDS ORDERED: KCL 40 mEq in 100 mL (PREMIX) 100 ML IV ONE (17:30)
[2023-01-05 19:00] VITALS: BP_SYST 131; PULSE 62; RESP 16; TEMP 98.1; O2SAT 96
[2023-01-05 20:00] VITALS: BP_SYST 131; PULSE 62; RESP 16; TEMP 98.1; O2SAT 96
[2023-01-05] MEDS: GABAPENTIN 100 MG CAPSULE PO SCH (23:40)
[2023-01-06] VITALS (8 sets, daily range): BP systolic 122–145; PULSE 52–67; RESP 16; TEMP 96.4–97.8; O2SAT 95–100
[2023-01-06 06:04] LABS: BASOPHILS % (AUTO) 0.4 % (0.0-2.0); EOSINOPHILS # (AUTO) 0.1 K/uL (0.0-0.4); EOSINOPHILS % (AUTO) 1.3 % (0.0-4.0); HEMATOCRIT 31.3 % (36-48); HEMOGLOBIN 9.7 g/dL (12.0-16.0); LYMPHOCYTES % (AUTO) 37.4 % (20.5-51.5); MEAN CORPUSCULAR HEMOGLOBIN 28 pg (27-31); MEAN CORPUSCULAR HGB CONC 31 % (32-36); MEAN CORPUSCULAR VOLUME 91 fL (79.0-98.0); MONOCYTES # (AUTO) 0.7 K/uL (0.0-1.0); MONOCYTES % (AUTO) 12.5 % (1.7-9.3); NEUTROPHILS # (AUTO) 2.6 K/uL (1.8-7.7); NEUTROPHILS % (AUTO) 48.4 % (40.0-70.0); PLATELET COUNT (AUTO) 202 K/uL (130-430); RED BLOOD CELL COUNT(AUTO) 3.43 MIL/uL (4.2-6.2); RED CELL DISTRIBUTION WIDTH 20.6 % (9.0-15.0); WHITE BLOOD COUNT (AUTO) 5.3 K/uL (4.8-10.8)
[2023-01-06 06:12] LABS: ALANINE AMINOTRANSFERASE 44 U/L (12-78); ALBUMIN 2.4 g/dL (3.4-4.8); ANION GAP 7 (5-15); ASPARTATE AMINOTRANSFERASE 68 U/L (10-37); CALCIUM 9.2 mg/dL (8.4-11.0); CARBON DIOXIDE 31 mmol/L (23-29); CHLORIDE 104 mmol/L (98-107); CREATININE 2.54 mg/dL (0.55-1.30); GLUCOSE 79 mg/dL (74-106); SODIUM SERUM 142 mmol/L (136-145); TOTAL BILIRUBIN 0.5 mg/dL (0.0-1.0); UREA NITROGEN, BLOOD 21 mg/dL (8-21)
[2023-01-06] MEDS: LEVOTHYROXINE SODIUM 0.088 MG TABLET PO SCH (07:03)
[2023-01-06] MEDS: POTASSIUM CHLORIDE 20 mEq in 100 mL (PREMIX) 100 ML x 2 doses IV SCH ×2 (07:04→09:55)
[2023-01-06] MEDS: ATORVASTATIN 20 MG TABLET PO SCH (09:04)
[2023-01-06] MEDS: VITAMIN B COMPLEX 1 CAP/TAB PO SCH (09:04)
[2023-01-06] MEDS: ASPIRIN 81 MG TAB.CHEW PO SCH (09:04)
[2023-01-06] MEDS: GABAPENTIN 100 MG CAPSULE PO SCH ×3 (09:04→21:35)
[2023-01-06] MEDS: METOPROLOL SUCCINATE 50 MG TAB.SR.24H (TOPROL XL) PO SCH (09:56)
[2023-01-06] MEDS: INSULIN REGULAR, HUMAN 100 UNITS/ML, 3 ML VIAL (humuLIN R) SUBCUT PRN (21:39)
[2023-01-07] VITALS: BP_SYST 119; PULSE 57; RESP 16; TEMP 97.7; O2SAT 96
[2023-01-07] MEDS: LEVOTHYROXINE SODIUM 0.088 MG TABLET PO SCH (05:36)
[2023-01-07 05:38] LABS: BASOPHILS % (AUTO) 0.4 % (0.0-2.0); EOSINOPHILS # (AUTO) 0.1 K/uL (0.0-0.4); EOSINOPHILS % (AUTO) 1.5 % (0.0-4.0); HEMATOCRIT 31.9 % (36-48); LYMPHOCYTES # (AUTO) 1.5 K/uL (1.0-5.5); LYMPHOCYTES % (AUTO) 30.1 % (20.5-51.5); MEAN CORPUSCULAR HEMOGLOBIN 29 pg (27-31); MEAN CORPUSCULAR HGB CONC 31 % (32-36); MEAN CORPUSCULAR VOLUME 92 fL (79.0-98.0); MONOCYTES # (AUTO) 0.5 K/uL (0.0-1.0); MONOCYTES % (AUTO) 9.8 % (1.7-9.3); NEUTROPHILS # (AUTO) 2.9 K/uL (1.8-7.7); NEUTROPHILS % (AUTO) 58.2 % (40.0-70.0); PLATELET COUNT (AUTO) 149 K/uL (130-430); RED BLOOD CELL COUNT(AUTO) 3.48 MIL/uL (4.2-6.2); RED CELL DISTRIBUTION WIDTH 21.7 % (9.0-15.0)
[2023-01-07] MEDS: INSULIN REGULAR, HUMAN 100 UNITS/ML, 3 ML VIAL (humuLIN R) SUBCUT PRN (05:42)
[2023-01-07 05:53] LABS: ALANINE AMINOTRANSFERASE 55 U/L (12-78); ALBUMIN 2.5 g/dL (3.4-4.8); ANION GAP 8 (5-15); ASPARTATE AMINOTRANSFERASE 67 U/L (10-37); CALCIUM 8.9 mg/dL (8.4-11.0); CARBON DIOXIDE 28 mmol/L (23-29); CHLORIDE 103 mmol/L (98-107); CREATININE 1.98 mg/dL (0.55-1.30); GLUCOSE 256 mg/dL (74-106); POTASSIUM 3.9 mmol/L (3.5-5.1); SODIUM SERUM 139 mmol/L (136-145); TOTAL BILIRUBIN 0.5 mg/dL (0.0-1.0); TOTAL PROTEIN, SERUM 6.1 g/dL (6.4-8.3); UREA NITROGEN, BLOOD 17 mg/dL (8-21)
[2023-01-07 08:00] VITALS: BP_SYST 151; PULSE 62; RESP 18; TEMP 96.5; O2SAT 100
[2023-01-07] MEDS: METOPROLOL SUCCINATE 50 MG TAB.SR.24H (TOPROL XL) PO SCH (09:00)
[2023-01-07] MEDS: VITAMIN B COMPLEX 1 CAP/TAB PO SCH (09:00)
[2023-01-07] MEDS: ASPIRIN 81 MG TAB.CHEW PO SCH (10:48)
[2023-01-07] MEDS: ATORVASTATIN 20 MG TABLET PO SCH (10:48)
[2023-01-07] MEDS: GABAPENTIN 100 MG CAPSULE PO SCH ×3 (10:50→20:27)
[2023-01-07 11:22] VITALS: BP_SYST 140; PULSE 62; RESP 15; TEMP 97.1; O2SAT 93
[2023-01-07 15:12] VITALS: BP_SYST 148; PULSE 61; RESP 16; TEMP 97.9; O2SAT 100
[2023-01-07] MEDS ORDERED: PROPOFOL 200MG/ 20ML VIAL (DIPRIVAN) IV ONE (17:33)
[2023-01-07] MEDS ORDERED: LIDOCAINE 1% 10 MG/ML, 20 ML MDV ONE (17:33)
[2023-01-07] MEDS ORDERED: NS 50 ML BAG IV ONE (17:33)
[2023-01-07] MEDS ORDERED: BUPIVACAINE /PF 0.25% 30 ML VIAL INJ ONE (17:33)
[2023-01-07] MEDS ORDERED: NS 500 ML IV.SOLN IV ONE (17:33)
[2023-01-07] MEDS ORDERED: HEPARIN SODIUM, PORCINE 10,000 UNITS/ 10 ML VIAL ONE (17:33)
[2023-01-07] MEDS ORDERED: hydrALAZINE HCL 20 MG/ML VIAL IV PRN (18:30)
[2023-01-07] MEDS ORDERED: NALOXONE HCL 0.4 MG/ML AMP (NARCAN) IVP PRN ×3 (18:30)
[2023-01-07] MEDS ORDERED: ONDANSETRON HCL 4 MG/2 ML VIAL IVP PRN (18:30)
[2023-01-07] MEDS ORDERED: HYDROmorphone 1 MG/ML INJ. CARTRIDGE IVP PRN ×2 (18:30)
[2023-01-07] MEDS ORDERED: hydrALAZINE HCL 20 MG/ML VIAL ONE (18:51)
[2023-01-07 20:00] VITALS: BP_SYST 110; PULSE 69; RESP 18; TEMP 96.3; O2SAT 98
[2023-01-07 23:57] VITALS: BP_SYST 109; PULSE 72; RESP 18; TEMP 97.8; O2SAT 96
[2023-01-08 00:15] VITALS: BP_SYST 109; PULSE 72; RESP 18; TEMP 97.8; O2SAT 96
[2023-01-08 06:07] LABS: BASOPHILS % (AUTO) 0.1 % (0.0-2.0); EOSINOPHILS % (AUTO) 0.6 % (0.0-4.0); HEMATOCRIT 30.3 % (36-48); HEMOGLOBIN 9.6 g/dL (12.0-16.0); LYMPHOCYTES # (AUTO) 1.1 K/uL (1.0-5.5); LYMPHOCYTES % (AUTO) 14.4 % (20.5-51.5); MEAN CORPUSCULAR HEMOGLOBIN 29 pg (27-31); MEAN CORPUSCULAR HGB CONC 32 % (32-36); MEAN CORPUSCULAR VOLUME 92 fL (79.0-98.0); MONOCYTES # (AUTO) 0.5 K/uL (0.0-1.0); MONOCYTES % (AUTO) 6.1 % (1.7-9.3); NEUTROPHILS # (AUTO) 5.9 K/uL (1.8-7.7); NEUTROPHILS % (AUTO) 78.8 % (40.0-70.0); PLATELET COUNT (AUTO) 144 K/uL (130-430); RED BLOOD CELL COUNT(AUTO) 3.29 MIL/uL (4.2-6.2); RED CELL DISTRIBUTION WIDTH 21.7 % (9.0-15.0); WHITE BLOOD COUNT (AUTO) 7.5 K/uL (4.8-10.8)
[2023-01-08] MEDS: LEVOTHYROXINE SODIUM 0.088 MG TABLET PO SCH (06:09)
[2023-01-08 06:36] LABS: ANION GAP 7 (5-15); CARBON DIOXIDE 26 mmol/L (23-29); CHLORIDE 103 mmol/L (98-107); CREATININE 2.02 mg/dL (0.55-1.30); GLUCOSE 210 mg/dL (74-106); POTASSIUM 3.9 mmol/L (3.5-5.1); SODIUM SERUM 136 mmol/L (136-145); UREA NITROGEN, BLOOD 18 mg/dL (8-21)
[2023-01-08 07:50] VITALS: BP_SYST 140; PULSE 61; RESP 18; TEMP 96.9; O2SAT 96
[2023-01-08 08:00] VITALS: O2SAT 96
[2023-01-08] MEDS ORDERED: HEPARIN SODIUM, PORCINE 10,000 UNITS/ 10 ML VIAL MC PRN (08:15)
[2023-01-08] MEDS ORDERED: ASPIRIN 81 MG TAB.CHEW PO SCH (09:00)
[2023-01-08] MEDS: ATORVASTATIN 20 MG TABLET PO SCH (09:02)
[2023-01-08] MEDS: GABAPENTIN 100 MG CAPSULE PO SCH ×2 (09:02→13:09)
[2023-01-08] MEDS: VITAMIN B COMPLEX 1 CAP/TAB PO SCH (09:02)
[2023-01-08 12:18] VITALS: BP_SYST 113; BP_SYST 145; PULSE 72; RESP 16; TEMP 97; O2SAT 96
[2023-01-08] MEDS: METOPROLOL SUCCINATE 50 MG TAB.SR.24H (TOPROL XL) PO SCH (13:10)
== END 2023-01-08 13:29 | disposition home or self-care (01) | DRG 673 ==
LOC: SED 03:51 → STU 07:53
PROVIDERS: ADMIT Family Medicine; ATTEND Family Medicine
PROC: 5A1D70Z Performance of Urinary Filtration, Intermittent, Less than 6 Hours Per Day (ICD-10-PCS; 2023-01-06)
PROC: 0JH63XZ Insertion of Tunneled Vascular Access Device into Chest Subcutaneous Tissue and Fascia, Percutaneous Approach (ICD-10-PCS; 2023-01-07)
PROC: 02HV33Z Insertion of Infusion Device into Superior Vena Cava, Percutaneous Approach (ICD-10-PCS; 2023-01-07)
PROC: B518ZZA Fluoroscopy of Superior Vena Cava, Guidance (ICD-10-PCS; 2023-01-07)
PROC: 02PAX3Z Removal of Infusion Device from Heart, External Approach (ICD-10-PCS; principal; 2023-01-07 18:00)
PROC: 5A1D70Z Performance of Urinary Filtration, Intermittent, Less than 6 Hours Per Day (ICD-10-PCS; 2023-01-08)
DX: T82.41XA Breakdown (mechanical) of vascular dialysis catheter, initial encounter (principal); N18.6 End stage renal disease; I12.0 Hypertensive chronic kidney disease with stage 5 chronic kidney disease or end stage renal disease; E11.649 Type 2 diabetes mellitus with hypoglycemia without coma; E87.6 Hypokalemia; E78.5 Hyperlipidemia, unspecified; E03.9 Hypothyroidism, unspecified; D64.9 Anemia, unspecified; Y83.8 Other surgical procedures as the cause of abnormal reaction of the patient, or of later complication, without mention of misadventure at the time of the procedure; E11.22 Type 2 diabetes mellitus with diabetic chronic kidney disease; Z88.2 Allergy status to sulfonamides; Z99.2 Dependence on renal dialysis; Z86.73 Personal history of transient ischemic attack (TIA), and cerebral infarction without residual deficits; Z79.82 Long term (current) use of aspirin; Z79.4 Long term (current) use of insulin; Z79.899 Other long term (current) drug therapy; Y92.89 Other specified places as the place of occurrence of the external cause
CPT/HCPCS: 36415; 71045; 76000; 80048; 80053; 80076; 81000; 81001; 81015; 82962; 83037; 83605; 84132; 84484; 85025; 85610-TC; 85730-TC; 87040; 87081; 87086; 90935; 90937; 93005; 97110-GP; 97116-GP; 97530-GP; 99291; G0378; J0360; J1644; J1815; J2001; J2704; J3475; J3480; J3490; J7040